=== PATIENT | male | born 2000 | race Caucasian/White ===

== ENCOUNTER 2022-04-05 22:02 | Emergency (ER) | payer OTHER ==
[~2022-04-05] VITALS: Ht 188 cm; Wt 115.7 kg
== END 2022-04-06 01:10 | disposition home or self-care (01) ==
LOC: ER 22:02
DX: S86.912A Strain of unspecified muscle(s) and tendon(s) at lower leg level, left leg, initial encounter (principal); I10 Essential (primary) hypertension; F17.200 Nicotine dependence, unspecified, uncomplicated; X50.9XXA Other and unspecified overexertion or strenuous movements or postures, initial encounter
CPT/HCPCS: 29505; 73562-LT; 99283-25; A9270; J1885

== ENCOUNTER → 2022-06-01 | Outpatient (CLI) | payer OTHER | END | disposition home or self-care (01) | LOC: LAB 13:16 → LAB SHORT 13:16 | DX: R07.0 Pain in throat (principal); Z87.09 Personal history of other diseases of the respiratory system; Z86.16 Personal history of COVID-19; Z72.0 Tobacco use | CPT/HCPCS: 87081; 87147 ==